=== PATIENT | male | born 1980 | race Caucasian/White ===

== ENCOUNTER 2021-08-08 02:51 | Emergency (ER) | payer BC ==
[2021-08-08] MEDS ORDERED: Ketorolac 30 MG/ML SDV IM ONE (03:26)
== END 2021-08-08 04:11 | disposition home or self-care (01) ==
LOC: JD.ED 02:51
DX: S46.911A Strain of unspecified muscle, fascia and tendon at shoulder and upper arm level, right arm, initial encounter (principal); X50.0XXA Overexertion from strenuous movement or load, initial encounter
CPT/HCPCS: 73030; 73060; 96372; 99283; J1885